=== PATIENT | male | born 1955 ===

== ENCOUNTER 2019-10-28 08:06 | Emergency (ER) | payer OTHER ==
[~2019-10-28] VITALS: Ht 188 cm; Wt 77.6 kg
[2019-10-28] MEDS ORDERED: PROZAC10 MG (08:22)
== END 2019-10-28 12:37 | disposition home or self-care (01) ==
LOC: ER 08:06
DX: S42.221A 2-part displaced fracture of surgical neck of right humerus, initial encounter for closed fracture (principal); M97.31XA Periprosthetic fracture around internal prosthetic right shoulder joint, initial encounter; S60.042A Contusion of left ring finger without damage to nail, initial encounter; Z96.611 Presence of right artificial shoulder joint; W18.09XA Striking against other object with subsequent fall, initial encounter; Y93.89 Activity, other specified; Y92.520 Airport as the place of occurrence of the external cause; Y99.8 Other external cause status